=== PATIENT | female | born 1940 | race Caucasian/White ===

== ENCOUNTER → 2016-11-21 | Outpatient (CLI) | payer OTHER, MEDICARE ==
[~2016-11-21] MED LIST: ASPI-435 PO; DILT120T8 PO; FERR325T PO; FURO20TA PO; INSUINJ4 SC; LEVO25TA PO; LOSA100T65 PO; LPT10; NIFE30TA2 PO; NVLGI/PEN SQ; PANT40TA PO; WARF2TAB PO
[2016-11-21 12:44] LABS: URINE APPEARANCE CLOUDY (CLEAR); URINE BILIRUBIN NEG (NEG); URINE COLOR YELLOW; URINE NITRITE NEG (NEG); URINE PH 6.5 (4.5-7.5); UROBILINOGEN NEG (NEG)
[2016-11-21 12:48] LABS: MANUAL MICROSCOPIC REQUIRED? NO; REVIEW REQ? NO
== END | disposition home or self-care (01) ==
LOC: C.LABSPEC 08:08
PROVIDERS: ATTEND Family Medicine
DX: R39.9 Unspecified symptoms and signs involving the genitourinary system (principal)

== ENCOUNTER → 2017-02-02 | Outpatient (CLI) | payer OTHER, MEDICARE ==
[2017-02-02 12:45] LABS: URINE APPEARANCE TURBID (CLEAR); URINE BILIRUBIN NEG (NEG); URINE COLOR YELLOW; URINE EPITHELIAL CELL AUTO 20-30 /lpf (0-5); URINE NITRITE NEG (NEG); URINE PH 5.5 (4.5-7.5); URINE SPECIFIC GRAVITY 1.013 (1.000-1.030); UROBILINOGEN NEG (NEG)
[2017-02-02 12:48] LABS: MANUAL MICROSCOPIC REQUIRED? NO; REVIEW REQ? NO
== END | disposition home or self-care (01) ==
LOC: C.LABSPEC 08:21
PROVIDERS: ATTEND Family Medicine
DX: R39.9 Unspecified symptoms and signs involving the genitourinary system (principal)

== ENCOUNTER 2017-04-10 16:17 | Emergency (ER) | payer OTHER, MEDICARE ==
[~2017-04-10] VITALS: Ht 165.1 cm; Wt 62.7 kg
[~2017-04-10 16:17] MED LIST changes: +FERR1TAB62 PO; -FERR325T PO; -LPT10; +LPT10 PO
[2017-04-10 16:25] VITALS: TEMP 37; Ht 165.1 cm; Wt 62.7 kg
--- NOTE | 2017-04-10 16:27 | EMERGENCY ROOM VISIT NOTE ---
History Report prepared by Juvencio: Jesus Pagan Under the Supervision of: Dr. Ny Harris M.D. First contact with patient: 16:25 Chief Complaint: SWELLING TO EXTREMITY Stated Complaint: L LEG SWELLING, REDNESS, ITCHINESS History of Present Illness The patient is a 77 year old female with a history of atrial fibrillation who presents to the Emergency Room with complaints of worsening left leg swelling and redness that started a couple days ago. Per the patient's family, the patient has a history of bilateral leg wounds around 11 years ago. The patient was seen at a wound clinic, and after multiple treatments including skin grafts , the wounds ended up getting better with a steroid. The patient notes that she started having itchiness on the left leg this morning. Per the patient's family , the patient has not propped her legs for 2 days. The patient's daughter called Dr. Fenton (the patient's primary care physician today), and was told to bring the patient here for evaluation. The patient denies any fevers. She adds that she was last on an antibiotic (Bactrim) for a UTI, but she says that she is still having symptoms. The patient says that she takes Warfarin daily. She has no history of blood clots. The patient's blood sugars have been fine recently. Source of History: patient, family Onset: 2 days ago Position: leg (left) Symptom Intensity: history of leg swelling/redness Quality: shock-like, other (redness, swelling) Timing: worsening Associated Symptoms: No fevers Note: Associated symptoms: Left leg itching. Still having some UTI symptoms. Review of Systems See HPI for pertinent positives & negatives. A total of 10 systems reviewed and were otherwise negative. Past Medical & Surgical Medical Problems: (1) Afib (2) Anemia Family History Family history omitted secondary to patient's advanced age. Social History Smoking Status: Former Smoker Drug Use: none Marital Status: Occupation Status: retired Current/Historical Medications Scheduled Aspirin (Aspirin 81), 81 MG PO DAILY Atorvastatin (Atorvastatin Calcium), 10 MG PO QAM Cefdinir (Omnicef), 300 MG PO DAILY Diltiazem Hcl (Cardizem), 120 MG PO DAILY Ferrous Sulfate (Ferrous Sulfate), 325 MG PO DAILY Furosemide (Lasix), 20 MG PO Q2D Insulin Glargine (Lantus Solostar), 14 UNITS SQ DAILY Insulin Lispro (Human) (Humalog Kwikpen), UNITS SQ AC Levothyroxine Sodium (Synthroid), 25 MCG PO DAILY Losartan Potassium (Cozaar), 100 MG PO DAILY Nifedipine (Nifedipine Er), 30 MG PO DAILY Sulfa/Trimethoprim (Bactrim Ds 800MG/160MG), 1 TAB PO DAILY Warfarin Sod (Jantoven), 6 MG PO MWF Warfarin Sodium (Warfarin Sodium), 4 MG PO [id number] Allergies Coded Allergies: Guaifenesin (Verified Allergy, Severe, ANAPHYLAXIS TO MUCUS RELIEF, ) Physical Exam Vital Signs Date Time Temp Pulse Resp B/P (MAP) Pulse Ox O2 Delivery O2 Flow Rate FiO2 04/10/17 19:14 100 20 150/83 97 Room Air 04/10/17 18:00 100 24 143/89 98 Room Air 04/10/17 17:26 94 18 141/69 98 Room Air 04/10/17 17:00 99 04/10/17 16:25 37.0 86 16 148/66 96 Room Air Physical Exam Vital signs reviewed. General: Well-appearing 77 year old female, in no significant distress. HEENT: No scleral icterus, PERRLA, neck supple. Atraumatic. Cardiovascular: Regular rate and rhythm, no extra sounds. Pulmonary: Clear to auscultation bilaterally, normal work of breathing. Abdomen: Soft, nontender, nondistended, positive bowel sounds. Musculoskeletal: Chronic surgical change to bilateral lower extremities with erythema. Chronic cellulitic change noted to left huerta with erythema, warmth, and serous-appearing drainage. No significant swelling noted. Neurologic: Patient awake alert and oriented x 3. Skin: Warm, dry, no rash Medical Decision & Procedures Laboratory Results 04/10/17 17:08 Red Blood Count 2.77, Mean Corpuscular Volume 96.4, Mean Corpuscular Hemoglobin 30.7, Mean Corpuscular Hemoglobin Concent 31.8, Mean Platelet Volume 8.3, Neutrophils (%) (Auto) 79.6, Lymphocytes (%) (Auto) 9.5, Monocytes (%) (Auto) 7.8, Eosinophils (%) (Auto) 1.6, Basophils (%) (Auto) 1.3, Neutrophils # (Auto) 5.10, Lymphocytes # (Auto) 0.61, Monocytes # (Auto) 0.50, Eosinophils # (Auto) 0.10, Basophils # (Auto) 0.08 04/10/17 17:08 Test 04/10/17 17:02 04/10/17 17:08 04/10/17 19:04 Bedside Lactic Acid Venous 0.54 mmol/L (0.90-1.70) White Blood Count 6.40 K/uL (4.8-10.8) Red Blood Count 2.77 M/uL (4.2-5.4) Hemoglobin 8.5 g/dL (12.0-16.0) Hematocrit 26.7 % (37-47) Mean Corpuscular Volume 96.4 fL (80-100) Mean Corpuscular Hemoglobin 30.7 pg (25-34) Mean Corpuscular Hemoglobin Concent 31.8 g/dl (32-36) Platelet Count 292 K/uL (130-400) Mean Platelet Volume 8.3 fL (7.4-10.4) Neutrophils (%) (Auto) 79.6 % Lymphocytes (%) (Auto) 9.5 % Monocytes (%) (Auto) 7.8 % Eosinophils (%) (Auto) 1.6 % Basophils (%) (Auto) 1.3 % Neutrophils # (Auto) 5.10 K/uL (1.4-6.5) Lymphocytes # (Auto) 0.61 K/uL (1.2-3.4) Monocytes # (Auto) 0.50 K/uL (0.11-0.59) Eosinophils # (Auto) 0.10 K/uL (0-0.5) Basophils # (Auto) 0.08 K/uL (0-0.2) RDW Standard Deviation 50.7 fL (36.4-46.3) RDW Coefficient of Variation 14.5 % (11.5-14.5) Immature Granulocyte % (Auto) 0.2 % Immature Granulocyte # (Auto) 0.01 K/uL (0.00-0.02) Red Blood Cell Morphology Unremarkable Prothrombin Time 25.7 SECONDS (9.0-12.0) Prothromb Time International Ratio 2.3 (0.9-1.1) Activated Partial Thromboplast Time 37.3 SECONDS (21.0-31.0) Partial Thromboplastin Ratio 1.4 Anion Gap 5.0 mmol/L (3-11) Est Creatinine Clear Calc Drug Dose 28.8 ml/min Estimated GFR () 38.5 Estimated GFR (Non- 33.2 BUN/Creatinine Ratio 17.7 (10-20) Calcium Level 9.2 mg/dl (8.5-10.1) Magnesium Level 2.0 mg/dl (1.8-2.4) Total Bilirubin 0.3 mg/dl (0.2-1) Direct Bilirubin < 0.1 mg/dl (0-0.2) Aspartate Amino Transf (AST/SGOT) 26 U/L (15-37) Alanine Aminotransferase (ALT/SGPT) 24 U/L (12-78) Alkaline Phosphatase 87 U/L (45-117) Total Protein 6.9 gm/dl (6.4-8.2) Albumin 3.6 gm/dl (3.4-5.0) Urine Color YELLOW Urine Appearance CLEAR (CLEAR) Urine pH 5.5 (4.5-7.5) Urine Specific [place] 1.011 (1.000-1.030) Urine Protein NEG (NEG) Urine Glucose (UA) NEG (NEG) Urine Ketones NEG (NEG) Urine Occult Blood NEG (NEG) Urine Nitrite NEG (NEG) Urine Bilirubin NEG (NEG) Urine Urobilinogen NEG (NEG) Urine Leukocyte Esterase SMALL (NEG) Urine WBC (Auto) 10-30 /hpf (0-5) Urine RBC (Auto) 0-4 /hpf (0-4) Urine Hyaline Casts (Auto) 1-5 /lpf (0-5) Urine Epithelial Cells (Auto) 5-10 /lpf (0-5) Urine Bacteria (Auto) NEG (NEG) Laboratory results per my review. Medications Administered Medications (Trade) Dose Ordered Sig/Flip Route Start Time Stop Time Status Last Admin Dose Admin Ceftriaxone Sodium (Rocephin Inj) 1 gm NOW STAT IV 04/10/17 16:36 04/10/17 16:39 DC 04/10/17 17:25 1 GM Trimethoprim/ Sulfamethoxazole (Septra Ds 800/ 160MG Tab) 1 tab NOW STAT PO 04/10/17 19:26 04/10/17 19:27 DC 04/10/17 19:26 1 TAB ED Course 1633: Past medical records reviewed. The patient was evaluated in room C8. A complete history and physical examination was performed. 1635: Ordered Rocephin Inj 1 gm IV. 1909: Upon reevaluation, the patient appeared to have improvement of her symptoms. I discussed findings with her. She verbalized agreement of the treatment plan. She was discharged home. Medical Decision Differential diagnosis: Etiologies such as cellulitis, abscess, MRSA infection, DVT, necrotizing fasciitis, dermatitis, drug eruption, as well as others were entertained.. This patient was evaluated and appeared to be in no significant distress. IV access was obtained and laboratory work was drawn. The patient was placed on the property assessment monitor and found to be in a normal sinus rhythm. Laboratory work reveals a normal white blood cell count. Lactic acid is normal. Sodium is slightly depleted at 129. The patient has an appointment with her PCP in 2 days. At this time she will be asked to hold the Lasix. She was given IV ceftriaxone and will be placed on Omnicef 300 mg once day as well as Bactrim DS 1 tablet once daily for 7 days, reduced dosing d/t renal impairment. She'll follow-up with her PCP as scheduled and will continue her Coumadin as prescribed currently. Patient will seek reevaluation of INR during her point with her PCP. She will return to the ER for worsening of symptoms or any medical concerns. Medication Reconcilliation Current Medication List: was personally reviewed by me Blood Pressure Screening Patient's blood pressure: Elevated blood pressure Blood pressure disposition: Elevated BP felt to be situational Impression Primary Impression: Cellulitis of left lower extremity Additional Impression: Hyponatremia Scribe Attestation The scribe's documentation has been prepared under my direction and personally reviewed by me in its entirety. I confirm that the note above accurately reflects all work, treatment, procedures, and medical decision making performed by me. Departure Information Dispostion Home / Self-Care Prescriptions Cefdinir (Omnicef) 300 Mg Cap 300 MG PO DAILY for 6 Days, #6 CAP Prov: Ny Harris M.D. 04/10/17 Sulfa/Trimethoprim (Bactrim Ds 800MG/160MG) Tab 1 TAB PO DAILY, #6 TAB Prov: Ny Harris M.D. 04/10/17 Referrals Lauren Fenton DO (PCP) Patient Instructions My [facility] Additional Instructions Diagnosis: Left lower extremity cellulitis, hyponatremia Bactrim DS 1 tablet daily for the next 6 days, start tomorrow. Omnicef 300 mg once daily for the next 6 days, start tomorrow. Stop your Lasix. Follow-up with your physician in 2 days as scheduled. Return to the emergency department for increased redness, increased swelling, pain, fever or any medical concerns. Problem Qualifiers
[2017-04-10] MEDS ORDERED: CEFTRIAXONE SOD INJ 1 GM ADDVIAL IV STA (16:36)
[2017-04-10] MEDS ORDERED: WARF4TAB43 PO (16:49)
[2017-04-10] MEDS ORDERED: INSU100I2 SQ (16:49)
[2017-04-10] MEDS ORDERED: INSDGIPEN SQ (16:49)
[2017-04-10] MEDS ORDERED: NIFE1TAB53 PO (16:49)
[2017-04-10] MEDS ORDERED: WARF2TAB8 PO (17:17)
[2017-04-10 17:23] LABS: BASO % 1.3 %; BASO ABS # 0.08 K/uL (0-0.2); EOS % 1.6 %; HEMATOCRIT 26.7 % (37-47); IG% 0.2 %; LYMPH % 9.5 %; LYMPH ABS # 0.61 K/uL (1.2-3.4); MEAN CELL VOLUME 96.4 fL (80-100); MEAN CORPUSCULAR HEMOGLOBIN 30.7 pg (25-34); MEAN CORPUSCULAR HGB CONC 31.8 g/dl (32-36); MEAN PLATELET VOLUME 8.3 fL (7.4-10.4); MONO % 7.8 %; NEUT % 79.6 %; PLATELET COUNT 292 K/uL (130-400); RED BLOOD COUNT 2.77 M/uL (4.2-5.4)
[2017-04-10 17:32] LABS: INR 2.3 (0.9-1.1); PARTIAL THROMBOPLASTIN RATIO 1.4; PROTHROMBIN TIME (PATIENT) 25.7 SECONDS (9.0-12.0)
[2017-04-10 17:38] LABS: ALT/SGPT 24 U/L (12-78); AST/SGOT 26 U/L (15-37); BLOOD UREA NITROGEN 27 mg/dl (7-18); BUN/CREATININE RATIO 17.7 (10-20); CALCIUM 9.2 mg/dl (8.5-10.1); CARBON DIOXIDE 25 mmol/L (21-32); CHLORIDE 99 mmol/L (98-107); CREATININE 1.52 mg/dl (0.60-1.20); GLUCOSE 157 mg/dl (70-99); POTASSIUM 4.2 mmol/L (3.5-5.1); SODIUM 129 mmol/L (136-145)
[2017-04-10 17:41] LABS: ALKALINE PHOSPHATASE 87 U/L (45-117)
[2017-04-10 17:50] LABS: COMPLETE YES
[2017-04-10 19:14] VITALS: BP 150/83; PULSE 100; O2SAT 97
[2017-04-10] MEDS ORDERED: CEFD1CAP14 PO (19:15)
[2017-04-10] MEDS ORDERED: SULF800T23 PO (19:15)
[2017-04-10] MEDS ORDERED: SULFAMETHOXAZOLE/TRIMETHOPRIM DS 800/160MG TAB PO STA (19:26)
[2017-04-10 19:35] LABS: URINE APPEARANCE CLEAR (CLEAR); URINE BILIRUBIN NEG (NEG); URINE COLOR YELLOW; URINE NITRITE NEG (NEG); URINE PH 5.5 (4.5-7.5); URINE SPECIFIC GRAVITY 1.011 (1.000-1.030); UROBILINOGEN NEG (NEG); ZZUR CULT IF INDIC CLEAN CATCH YES
[2017-04-10 19:37] LABS: MANUAL MICROSCOPIC REQUIRED? NO; REVIEW REQ? NO
== END 2017-04-10 19:32 | disposition home or self-care (01) ==
LOC: C.EDB 16:18 → C.EDC 19:32
DX: L03.116 Cellulitis of left lower limb (principal); E87.1 Hypo-osmolality and hyponatremia; I48.91 Unspecified atrial fibrillation; Z79.82 Long term (current) use of aspirin; Z79.4 Long term (current) use of insulin; Z79.01 Long term (current) use of anticoagulants; Z87.891 Personal history of nicotine dependence

== ENCOUNTER → 2017-05-16 | Outpatient (CLI) | payer OTHER, MEDICARE ==
[~2017-05-16] MED LIST changes: +CEPH500C PO; +CIPR-304 PO; +CYCL25CA2 PO; +DICL1GEL12 TOP; +DILT120T3 PO; +INSDGIPEN SQ; +INSU100I2 SQ; -INSUINJ4 SC; +LEVO25TA5 PO; +LSX20 PO; -NIFE30TA2 PO; +NIFE30TA86 PO; -NVLGI/PEN SQ; -PANT40TA PO; +PANT40TA2 PO; +PRD/25 PO; +SULF800T23 PO; +WARF2TAB8 PO; +WARF4TAB43 PO; +cephalexin PO; +prednisone PO
== END | disposition home or self-care (01) ==
LOC: C.LABSPEC 14:17
PROVIDERS: ATTEND Family Medicine
DX: L03.116 Cellulitis of left lower limb (principal); S81.802A Unspecified open wound, left lower leg, initial encounter; X58.XXXA Exposure to other specified factors, initial encounter

== ENCOUNTER → 2017-06-18 | Outpatient (CLI) | payer OTHER, MEDICARE ==
[~2017-06-18] MED LIST changes: -CEPH500C PO; -CIPR-304 PO; -CYCL25CA2 PO; -DICL1GEL12 TOP; -DILT120T3 PO; -LEVO25TA5 PO; -LSX20 PO; +NIFE1TAB53 PO; -NIFE30TA86 PO; -PANT40TA2 PO; -PRD/25 PO; -WARF2TAB PO; -cephalexin PO; -prednisone PO
--- NOTE | 2017-07-05 13:09 | CODING QUERY NO DIAGNOSIS ---
Valid Physician Order Needed A valid physician order must be submitted in order to properly bill for the service(s) provided, including date of service(s), valid diagnosis, and physician signature. If these tests are done on a recurring basis the original physican order must be submitted in order to code and bill for the service(s) provided. Please fax us the original, signed physician order so that we may expedite billing to [phone] DOS 06/18/17 * Wound Culture of the left front lower leg. Thank you [facility] Information Management
== END | disposition home or self-care (01) ==
LOC: C.LABSPEC 14:35
PROVIDERS: ATTEND Physician Assistant
DX: L03.116 Cellulitis of left lower limb (principal); S81.802A Unspecified open wound, left lower leg, initial encounter; I87.2 Venous insufficiency (chronic) (peripheral); X58.XXXA Exposure to other specified factors, initial encounter